=== PATIENT | female | born 2000 | race Caucasian/White ===

== ENCOUNTER 2023-11-18 08:46 | Outpatient (CLI) | payer BC, SELFPAY ==
--- NOTE | ~2023-11-18 | US_ITS ---
US breast RT limited DATE: 11/18/2023 09:01 INDICATION: Right breast lump for one month TECHNIQUE: Real-time and color flow imaging targeted at the right breast lump at 10:00 7 cm from nipp le COMPARISON: None FINDINGS: There is a parallel circumscribed heterogeneous hypoechoic solid 1.9 x 0.9 x 1.5 cm mass wi th through transmission and posterior enhancement, no internal vascularity on color flow imaging. 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 IMPRESSION: BI-RADS Category 2: Benign Recommendation: If there is any significant change consider follow-up ultrasound imaging. Reviewed, dictated and finalized at [facility]. Reviewed, dictated and finalized at [facility]. IMPRESSION: BI-RADS Category 2: Benign Recommendation: If there is any significant change consider follow-up ultrasoun d imaging.
== END 2023-11-18 08:47 ==
LOC: MICIMG 08:49
PROVIDERS: PCP Obstetrics & Gynecology; Visit Provider Obstetrics & Gynecology
DX: N63.10 Unspecified lump in the right breast, unspecified quadrant (principal)
CPT/HCPCS: 76642